=== PATIENT | male | born 1955 | race Caucasian/White ===

== ENCOUNTER 2020-04-14 13:07 | Inpatient (IN) | payer MEDICARE, SELFPAY ==
[2020-04-14] VITALS (12 sets, daily range): BP systolic 116–143; BP diastolic 69–94; PULSE 115–129; RESP 15–26; TEMP 36.4–36.7; O2SAT 95–100; BMI 19.5
--- NOTE | ~2020-04-14 | XR_ITS ---
EXAMINATION: [id number]_CR EXAM DATE: 04/15/2020 12:42 INDICATION: Postthoracentesis. TECHNIQUE: Portable AP frontal upright chest x-ray was obtained. Comparison is made to prior examinat ion from 04/14/2020. FINDINGS: The moderate left pleural effusion is nonloculated, was not well appreciated on yesterday's upright x-ray but confirmed on CT. The left hemidiaphragm has a more normal position, indicating dec rease in size of the subpulmonic pleural effusion. There is no evidence of postprocedure pneumothorax . Completely collapsed fibrotic right upper lobe. There is right-sided Chemo-Port. Narrow cardiac victor hugo houette from underlying hyperinflation, emphysema. Thoracic levoscoliosis. IMPRESSION: 1. Improvement in subpulmonic nonloculated pleural effusion. 2. No evidence of postprocedure pneumothorax. 3. Chronic right upper lobe fibrosis, collapse. Reviewed, dictated and finalized at location A. RIGHT EXPERT
--- NOTE | ~2020-04-14 | XR_ITS ---
EXAMINATION: XR chest 2V EXAM DATE: 04/18/2020 08:10 INDICATION: Pleural effusion . Subpulmonic left pleural effusion. Thoracentesis on 04/15/2020. TECHNIQUE: Frontal and lateral projections of the chest obtained and reviewed. Comparison is made to prior examination from 04/15/2020, 04/14. FINDINGS: Small left pleural effusion, similar appearance to chest x-ray following thoracentesis 2 d ays ago. There is right-sided Chemo-Port. There is complete collapse of the right upper lobe with vol ume loss, retraction of the mediastinum. No evidence of acute airspace disease. No pneumothorax. Approximately 2 cm left infrahilar soft tissue density, lymphadenopathy described on CT. IMPRESSION: 1. Small left subpulmonic pleural effusion unchanged. 2. Right upper lobe collapse, fibrosis. 3. Left infrahilar lymphadenopathy. Reviewed, dictated and finalized at location B. 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
--- NOTE | ~2020-04-14 | US_ITS ---
EXAMINATION: US thoracentesis EXAM DATE: 04/15/2020 12:32 INDICATION: Moderate left pleural effusion on CT. TECHNIQUE: Timeout procedure was performed. I discussed the procedure, its risks and benefits with th e patient. Potential risks discussed included bleeding, infection, and pneumothorax which could poten tially require chest tube. Alternatives were also discussed. The patient understood the risks, was gi jassi chance to ask questions, and agreed to proceed. The skin was prepped and draped in sterile fashion. A total of 5 mL 1% lidocaine was used for local a nesthesia. Under ultrasound guidance, a 5 Fr catheter with trochar was advanced into the left pleural effusion. Fluid was aspirated. The catheter was removed, and a dressing was applied. There were no i mmediate complications. Patient was sent for postprocedure chest x-ray. FINDINGS: Ultrasound images demonstrate a left pleural effusion adequate in size for performing thoracentesis. IMPRESSION: Successful ultrasound-guided thoracentesis yielding 1000 mL of yellow turbid fluid for d iagnostic and therapeutic purposes. Reviewed, dictated and finalized at location A. ING ROOM SUPERVISOR IMPRESSION: Successful ultrasound-guided thoracentesis yielding 1000 mL of yel low turbid fluid for diagnostic and therapeutic purposes.
--- NOTE | ~2020-04-14 | XR_ITS ---
EXAMINATION: XR chest 1V portable EXAM DATE: 04/14/2020 13:26 INDICATION: Cough, fever and shortness of breath. TECHNIQUE: Portable AP frontal chest x-ray was obtained. Comparison is made to prior examination from 01/26/2019, 12/31/2018. FINDINGS: There is a right-sided portacatheter. Completely fibrotic collapsed right upper lobe with r etraction of the trachea and mediastinum. This has progressed compared to prior study. Suspect interval development of ill-defined left basilar edema or pneumonia. Heart is normal in size. No pneumothorax or pleural effusion. IMPRESSION: Probable acute left lower lobe ill-defined edema or pneumonia. Reviewed, dictated and finalized at location A. TIC CUTTER
--- NOTE | ~2020-04-14 | CT_ITS ---
EXAMINATION: CTA chest PE protocol DATE: 04/14/2020 15:45 INDICATION: Shortness of breath, lung cancer TECHNIQUE: Computed tomography angiography (CTA) of the chest was performed with 100 mL Omnipaque-350 intravenous contrast timed to evaluate the pulmonary arteries. Coronal maximum intensity projection 3D-reconstructions were created by the technologist. The dose-length product (DLP) was 229.21 mGy-cm. Automated exposure control and iterative reconstruction technique were employed. COMPARISON: 01/26/2019 FINDINGS: The pulmonary arteries are well-opacified. No pulmonary embolism is identified. There is ch ronic paramediastinal scarring in the right upper lobe. There is moderate emphysema. The previously d escribed multiloculated gas and fluid collection of the right lung apex is no longer present. There i s volume loss in the right hemithorax. A moderate-sized left pleural effusion has developed. There is left hilar lymphadenopathy. The heart size is normal. A right internal jugular Port-A-Cath ends with its tip in the distal superior vena cava. There is moderate thoracic spondylosis. IMPRESSION: 1. No pulmonary embolism. 2. Moderate-sized left pleural effusion. 3. Left hilar lymphadenopathy, reactive versus metastatic disease. Reviewed, dictated and finalized at location A. HIST MONK
--- NOTE | 2020-04-14 13:15 | ECG_ITS ---
Measurements Intervals [place] Rate: 127 P: 55 MD: 151 QRS: 6 QRSD: 74 T: 61 QT: 281 QTc: 409 Interpretive Statements SINUS TACHYCARDIA ATRIAL PREMATURE COMPLEX LOW QRS VOLTAGE- DIFFUSE LEADS ABNORMAL ECG Electronically Signed On 04-14-2020 15:07:09 PARTS LISTER by Carlos Melchor D.O.
--- NOTE | 2020-04-14 13:38 | ED.SOB ---
HPI - SOB/Dyspnea General Chief Complaint: Shortness of Breath/Dyspnea Stated Complaint: SOB, fatigue Time Seen by Provider: 04/14/20 13:12 Source: patient Mode of arrival: wheelchair Limitations: no limitations History of Present Illness HPI Narrative: Patient is a 65-year-old male with a history of COPD, complaining of shortness of breath which she states started 1 month ago but worse this past week. Patient states that I think I have pneumonia . Patient states that he had a fever 2 days ago but none today. Patient denies any chest pain, abdominal pain, nausea, vomiting, diarrhea or urinary symptoms. Related Data Home Medications Medication Instructions Recorded Confirmed lorazepam 0.5 mg PO HS PRN 11/26/18 01/26/19 folic acid 1 mg PO DAILY 12/31/18 01/26/19 Allergies Allergy/AdvReac Type Severity Reaction Status Date / Time No Known Allergies Allergy Verified 04/14/20 13:18 Review of Systems Review of Systems: All systems reviewed & are unremarkable except as noted in HPI and below Constitutional: Constitutional: Denies body ache(s), Denies excessive sweating, Denies fatigue, Denies headache(s), Denies lethargy, Denies malaise, Denies weakness and Denies weight loss Eyes: Eyes: Denies blurry vision, Denies change in vision and Denies loss of vision ENT: Denies dizziness, Denies ear discharge, Denies headache(s), Denies lip swelling, Denies epistaxis, Denies nasal congestion, Denies neck pain, Denies throat swelling and Denies tongue swelling Cardiovascular: Cardiovascular: Denies chest pain, Denies chest pain at rest, Denies chest pain with activity, Denies diaphoresis, Denies rapid heart rate, Denies edema, Denies irregular heart rhythm, Denies lightheadedness, Denies palpitations, Denies dyspnea and Denies dyspnea on exertion Respiratory: Respiratory: Denies hemoptysis Gastrointestinal: Gastrointestinal: Denies abdominal pain, Denies melena, Denies hematochezia, Denies diarrhea, Denies nausea, Denies vomiting and Denies hematemesis Musculoskeletal: Musculoskeletal: Denies abnormal gait, Denies deformity, Denies joint swelling, Denies limited range of motion, Denies neck pain and Denies numbness Neurologic: Denies Abnormal speech present, Denies abnormal gait, Denies confusion, Denies dizziness, Denies headache(s), Denies focal weakness, Denies loss of vision, Denies numbness, Denies Other visual disturbances, Denies Sensory deficit (Neuro) and Denies weakness Psychiatric: Psychiatric: Denies confusion, Denies depression, Denies auditory hallucinations, Denies homicidal ideation and Denies suicidal ideation Endocrine: Endocrine: Denies cold intolerance, Denies excessive sweating, Denies fatigue, Denies heat intolerance and Denies palpitations Hematologic/Lymphatic: Hematologic/Lymphatic: Denies easy bleeding and Denies easy bruising Allergic/Immunologic: Allergic/Immunologic: Denies lip swelling, Denies throat swelling and Denies tongue swelling PMFSH Past Medical History Medical History (Updated 04/14/20 @ 14:43 by Musa Benz MD) Anxiety Bronchitis C. difficile diarrhea Chronic back pain Colitis COPD (chronic obstructive pulmonary disease) Depression Gout History of chemotherapy History of radiation therapy HTN (hypertension) Hyperlipidemia Lung cancer Pneumonia Surgical History Surgical History History of arthroscopy of knee History of removal of Port-a-Cath Family History Family History Father Family history of cardiovascular disease Acute myocardial infarction Mother Family history of cardiovascular disease Acute myocardial infarction Social History Social History Social History: Patient is a DNR. Smoking packs per day: 1 Smoking cigarettes per day: 20.0 Years smoked: 40 Smoking pack-years: 40.00
[2020-04-14] MEDS: ALBUTEROL SULFATE NEB 2.5 MG/0.5 ML INH 5 MG INHALATION ×2 (13:41→19:38)
[2020-04-14] MEDS: IPRATROPIUM BR 0.02% INH SOLN 0.5 MG/2.5 ML VIAL INHALATION ×2 (13:41→19:38)
[2020-04-14 13:51] LABS: Alveolar/Arterial O2 Gradient 24.6 mmHg; Carboxyhemoglobin 1.1 % THb (0-2.0); Fractional Inspired Oxygen 21 %; HCO3 ABG 24.2 mEq/l (22.0-26.0); Methemoglobin ABG 0.3 %THb (0-1.5); Modified Allen's Test Pass; Oxygen Content ABG 19.7 %vol (16.0-22.0); Oxygen Saturation ABG 96.9 % (95.0-100.0); Oxyhemoglobin 94.4 % THb (90.0-100.0); PCO2 ABG 34.4 mmHg (35.0-45.0); PO2 ABG 83.9 mmHg (80.0-100.0); Reduced Hemoglobin 4.2 %THb (0-5.0); Site Drawn RIGHT RADIAL; Total Hemoglobin 14.8 g/dL (12.0-18.0); pH ABG 7.465 (7.350-7.450)
[2020-04-14 13:52] LABS: Device ROOM AIR
[2020-04-14] MEDS: DEXAMETHASONE SOD PHOS INJ 4 MG/ML VIAL 10 MG IV PUSH (13:55)
[2020-04-14 13:57] LABS: Basophils Absolute Auto 0.1 K/mm3 (0.0-0.1); Basophils Percent Auto 0.5 % (0.2-1.2); Eosinophils Absolute Auto 0.3 K/mm3 (0-0.3); Eosinophils Percent Auto 2.3 % (0-4.4); Hematocrit 44.6 % (42.0-52.0); Hemoglobin 15.3 g/dL (14.0-18.0); Immature Granulocyte Absolute 0.03 K/mm3 (0.00-0.031); Immature Granulocyte Percent A 0.3 % (0-0.5); Lymphocytes Absolute Auto 0.58 K/mm3 (0.9-3.2); Lymphocytes Percent Auto 4.9 % (18.3-44.2); Mean Corpuscular HGB Conc 34.3 g/dl (32-36); Mean Corpuscular Hemoglobin 30.5 pg (26-34); Mean Platelet Volume 8.6 fl (7.4-10.4); Monocytes Absolute Auto 1.2 K/mm3 (0.1-0.6); Monocytes Percent Auto 10.5 % (2.6-8.5); Neutrophils Absolute Auto 9.6 K/mm3 (1.3-6.7); Neutrophils Percent Auto 81.5 % (45.5-73.1); Platelet Count Result 348 k/mm3 (150-375); Red Blood Count 5.01 M/mm3 (4.6-6.20); Red Cell Distribution Width 12.8 % (11.5-14.5); White Blood Count 11.8 K/mm3 (4.5-10.0)
[2020-04-14 14:07] LABS: Prothrombin Time 13.5 Seconds (11.1-14.7)
[2020-04-14 14:08] LABS: Partial Thromboplastin Time 29.5 SECONDS (22.3-36.8)
[2020-04-14 14:09] LABS: Lactic Acid Reflex 1.1 mmol/L (0.7-2.1)
[2020-04-14 14:10] LABS: Anion Gap 7 mmol/L (8-16); Calcium 8.9 mg/dL (8.4-10.2); Carbon Dioxide 30 mmol/L (22-30); Chloride 92 mmol/L (98-107); Estimated CRCL calculation 94 ml/min; Estimated Glomerular Filt Rate > 60; Glucose 109 mg/dL (75-110); Potassium 3.8 mmol/L (3.4-5.0); Sodium 129 mmol/L (137-145)
[2020-04-14 14:22] LABS: NT Pro B Type Natriuretic Pept 323 PG/ML (5-100); Troponin I < 0.012 ng/mL (0.000-0.034)
[2020-04-14 14:39] LABS: Blood Urea Nitrogen < 2 mg/dL (9-20)
[2020-04-14 14:49] LABS: D Dimer 3.11 ug/mL (<0.48)
--- NOTE | 2020-04-14 16:05 | ADMGEN ---
This patient, Joe Carrasquillo, was admitted to [facility] Surg Room 321-01. Patient/family oriented to hospital policies and general routines including ID bracelet, bed and alarms, visiting hours, pain management, procedures, bathroom and other care routines, personal items, smoking policy, room service/diet, and visiting hours. Information on how to activate the Rapid Response Team has been discussed. Patient/Family are encouraged to report perceived risks to care and to ask questions if they do not understand what they are told or what they should do.
[2020-04-14] MEDS: MELATONIN 5 MG TABLET PO (20:49)
[2020-04-14] MEDS: SACCHAROMYCES BOULARDII 250 MG CAPSULE PO (20:51)
[2020-04-14] MEDS: NICOTINE (*PBKC) 14 MG PATCH 1 PATCH TRANSDERM (20:51)
[2020-04-14] MEDS: LORazepam (*CRX) 0.5 MG TABLET PO (20:55)
--- NOTE | 2020-04-14 21:30 | PM.IMHP ---
H&P: HPI History of Present Illness Date/Time: 04/14/20 21:30 Chief Complaint: Shortness of breath. Narrative: This is a 64-year-old male smoker with history of both small cell lung cancer in 2018 and non-small cell adenocarcinoma of the lung in 2018, COPD, and hyperlipidemia presented to the emergency department earlier today from home for evaluation of shortness of breath. He has chronic dyspnea even on minimal exertion when walking about the home. That seems to have progressed over the last 1 month however has been markedly worse in the past 5 days or so. For the last 2 days he has had subjective fever and sweats as well as fatigue and generalized malaise: ?I think I have pneumonia.? It sounds as though he has a chronic smoker's cough which is not necessarily unchanged though he has been wheezing more than usual lately. His appetite has also been poor although he denies nausea and vomiting. He denies headache, sinus congestion, otalgia, odynophagia, chest pain, pleuritic pain, orthopnea, PND, lower extremity edema, nausea, vomiting, and diarrhea. Review of Systems Review of Systems: Narrative: Twelve systems were reviewed with pertinent positives and negatives as per HPI. Except as documented, all other systems were reviewed and are negative. [facility] Past Medical History Medical History (Updated 04/14/20 @ 23:42 by Lennie Posadas PA-C) Anxiety C. difficile diarrhea (~12/2018) Chronic back pain Chronic obstructive pulmonary disease Depression Gout Hyperlipidemia Small cell lung cancer (~2007) Arising in the right upper lobe presenting with superior vena cava syndrome. Status post chemotherapy and radiation. Stage IV adenocarcinoma of lung (~04/2017) Status post chemotherapy and immunotherapy of which he stopped taking due to side effects. Tobacco abuse Surgical History Surgical History History of arthroscopy of knee History of removal of Port-a-Cath Family History Family History Father Family history of cardiovascular disease Acute myocardial infarction Mother Family history of cardiovascular disease Acute myocardial infarction Social History Social History (Updated 04/14/20 @ 23:39 by Lennie Posadas PA-C) Social History: Surrogate decision maker: Fernando Carrasquillo. Code status: Do not resuscitate. Smoking packs per day: 1 Smoking cigarettes per day: 20.0 Years smoked: 40 Smoking pack-years: 40.00 Smoking status: Current every day smoker Tobacco type: cigarettes Second hand tobacco smoke exposure: Yes Alcohol intake: current Drinks per week: 4 Substance use: never Substance use type: does not use Additional living arrangements comments: Single and lives in [place]. 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 Gender identity (if verbalized by the patient): Male Sexual Orientation (if Verbalized by the Patient): Straight or Heterosexual Spiritual care concerns: No Agree to blood products: Yes Meds Home Medications and Allergies Home Medications Medication Instructions Recorded Confirmed Type lorazepam 0.5 mg PO HS PRN 11/26/18 04/14/20 History folic acid 1 mg PO DAILY 12/31/18 04/14/20 History Saccharomyces boulardii [Florastor] 250 mg PO TID #90 cap 01/22/19 04/14/20 Rx fluticasone propionate 50 1 spray INTRANASAL DAILY PRN #16 ml 10/02/19 04/14/20 Rx mcg/actuation nasal spray,suspension atorvastatin 10 mg tablet 10 mg PO DAILY #90 tablet 11/16/19 04/14/20 Rx Allergies Allergy/AdvReac Type Severity Reaction Status Date / Time No Known Allergies Allergy Verified 04/14/20 13:18 Vital Signs Vital Signs - 24 hr 04/14/20 13:12 04/14/20 13:19 04/14/20 13:46 Temperature 97.9 F Pulse Rate 129 H 120 H Respiratory Rate 26 H 18 Blood Pressure 1
[2020-04-15] VITALS (15 sets, daily range): BP systolic 120–144; BP diastolic 76–83; PULSE 60–122; RESP 18–24; TEMP 36.3–36.8; O2SAT 93–100
[2020-04-15 06:09] LABS: Hematocrit 37.3 % (42.0-52.0); Hemoglobin 12.8 g/dL (14.0-18.0); Mean Corpuscular HGB Conc 34.3 g/dl (32-36); Mean Corpuscular Hemoglobin 30.4 pg (26-34); Mean Corpuscular Volume 88.6 fl (80-100); Mean Platelet Volume 8.5 fl (7.4-10.4); Platelet Count Result 320 k/mm3 (150-375); Red Blood Count 4.21 M/mm3 (4.6-6.20); Red Cell Distribution Width 12.8 % (11.5-14.5); White Blood Count 9.2 K/mm3 (4.5-10.0)
[2020-04-15 06:39] LABS: Alanine Aminotransferase 10 U/L (4-50); Alkaline Phosphatase 114 U/L (38-126); Anion Gap 4 mmol/L (8-16); Aspartate Amino Transferase 17 U/L (17-59); Bilirubin,Total 0.4 mg/dL (0.2-1.3); Blood Urea Nitrogen 4 mg/dL (9-20); Calcium 8.6 mg/dL (8.4-10.2); Carbon Dioxide 28 mmol/L (22-30); Chloride 97 mmol/L (98-107); Estimated CRCL calculation 111 ml/min; Estimated Glomerular Filt Rate > 60; Glucose 123 mg/dL (75-110); Magnesium 1.5 mg/dL (1.6-2.3); Potassium 4.1 mmol/L (3.4-5.0); Sodium 129 mmol/L (137-145)
[2020-04-15 07:04] LABS: Thyroid Stimulating Hormone Reflex 0.573 uIU/mL (0.465-4.68)
[2020-04-15] MEDS: ALBUTEROL SULFATE NEB 2.5 MG/0.5 ML INH 5 MG INHALATION ×3 (08:18→20:34)
[2020-04-15] MEDS: IPRATROPIUM BR 0.02% INH SOLN 0.5 MG/2.5 ML VIAL INHALATION ×3 (08:18→20:34)
[2020-04-15 09:06] LABS: Lactate Dehydrogenase 638 U/L (313-618)
[2020-04-15 12:40] LABS: pH Pleural Fluid 7.437 (7.210-7.500)
[2020-04-15] MEDS: FOLIC ACID 1 MG TABLET PO (13:41)
[2020-04-15] MEDS: ATORVASTATIN 10 MG TABLET PO (13:41)
[2020-04-15] MEDS: predniSONE 20 MG TABLET 40 MG PO (13:41)
[2020-04-15] MEDS: SACCHAROMYCES BOULARDII 250 MG CAPSULE PO ×2 (13:41→17:19)
[2020-04-15] MEDS: NICOTINE (*PBKC) 14 MG PATCH 1 PATCH TRANSDERM (13:42)
[2020-04-15] MEDS: FLUTICASONE PROPIONATE 0.05% NA SPR 16 GM BTL (*BKC) 1 SPRAY NASAL (13:42)
[2020-04-15 14:25] LABS: Appearance Pleural Fluid Cloudy (Clear); Color Pleural Fluid Yellow (Colorless); Nucleated Cell Pleural Fluid 2306 /uL (0-1000); Pleural fluid source Pleural fluid; RBC Pleural Fluid 1881 /uL (0-0)
[2020-04-15 14:29] LABS: Lymphocytes Pleural Fluid 14 %; Macrophages Pleural Fluid 0 %; Mesothelial Cells Pleural Flui 0 %; Monocytes Pleural Fluid 8 %; Neutrophils Pleural Fluid 78 % (0-25); Other Cells Pleural Fluid 0 %
--- NOTE | 2020-04-15 15:26 | PM.IMPN ---
Progress Note: A&P Assessment and Plan (1) Pneumonia involving left lung: Code(s): J18.9 - Pneumonia, unspecified organism Status: Acute Assessment and Plan: CT showing pleural effusion with possible pneumonia -continue ceftriaxone and azithromycin at this time -white blood cell count has improved -COVID-19 PCR pending but will likely be negative -Gram stain thoracentesis shows white blood cells but no organisms at this time -monitor for diarrhea since he has a history of C diff, continue probiotic (2) Pleural effusion on left: Code(s): J90 - Pleural effusion, not elsewhere classified Status: Acute Assessment and Plan: Most likely differential includes infection verses recurrent lung cancer -thoracentesis done today which shows nucleated cells and blood -await further testing including cytology (3) Person under investigation for COVID-19: Code(s): Z20.822 - Contact with and (suspected) exposure to COVID-19 Status: Acute Assessment and Plan: Await PCR (4) Hyponatremia: Code(s): E87.1 - Hypo-osmolality and hyponatremia Status: Acute Assessment and Plan: Could be due to possible recurrent cancer or infection -will order urine sodium and urine antigens (5) Sinus tachycardia: Code(s): R00.0 - Tachycardia, unspecified Status: Acute Assessment and Plan: Resolving -patient had sinus tachycardia up to 130 earlier in the stay but now 102 -no PE noted on CTA -could be due to COPD or stress (6) Chronic obstructive pulmonary disease: Code(s): J44.9 - Chronic obstructive pulmonary disease, unspecified Status: Acute Assessment and Plan: Pt states he is a smoker and has no plans to quit -continue fluticasone daily (7) Tobacco abuse: Code(s): Z72.0 - Tobacco use Status: Acute Assessment and Plan: Nicotine patch applied Time Spent With Patient Time with patient: 25 - 35 minutes Subjective Date/time seen: 04/15/20 15:26 Interval history: Pt is a 65 y/o male here for SOB and pleural effusion. Patient was seen today and states he is doing well. He cannot really notice any change after the thoracentesis but has not been up been doing much. His only complaint is that he has not had a cup of coffee today. Pt denies nausea, vomiting, fevers, chills, constipation, diarrhea, chest pain, or abdominal pain. We talked about thoracentesis and the differential which includes infection or cancer. He states if it is cancer he would not want to go under any additional treatment. Review of Systems Review of Systems: All systems reviewed & are unremarkable except as noted in HPI and below Exam Narrative: Exam Narrative: General: Well developed well nourished patient in NAD HEENT: normocephalic Neck: supple Neuro: Alert and oriented x4 CV:RRR Resp:Crackles throughout the entire left lung. mild crackles in the RLL. wet cough on exam. Abd: Soft, non distended. No pain to palpation. Positive bowel sounds Extremities: No swelling, erythema, or pain to palpation. Objective Data Vital Signs Vital Signs: Vital Signs - 24 hr 04/14/20 15:30 04/14/20 16:00 04/14/20 19:39 Temperature 97.6 F Pulse Rate 115 H 122 H 116 H Respiratory Rate 24 H 22 H 25 H Blood Pressure 129/94 H 143/86 H Pulse Oximetry 100 96 04/14/20 19:50 04/14/20 20:00 04/14/20 23:46 Temperature 98.1 F 97.9 F Pulse Rate 122 H 121 H 117 H Respiratory Rate 24 H 20 18 Blood Pressure 130/81 118/69 Pulse Oximetry 99 96 04/15/20 00:00 04/15/20 04:00 04/15/20 08:00 Temperature 97.3 F L 97.7 F Pulse Rate 60 98 95 Respiratory Rate 18 20 Blood Pressure 144/81 H 131/83 Pulse Oximetry 98 99 04/15/20 08:19 04/15/20 08:35 04/15/20 11:44 Temperature 98 F Pulse Rate 96 100 96 Respiratory Rate 20 20 18 Blood Pressure 143/76 H Pulse Oximetry 97 99 04/15/20 12:31 04/15/20
--- NOTE | 2020-04-15 15:40 | PC.NURSE ---
Held Lovenox dose 04/15/20 d/t thoracentesis.
[2020-04-15] MEDS: MAGNESIUM OXIDE 400 MG TABLET PO (17:19)
[2020-04-15 18:49] LABS: Sodium Urine Random 50 meq/L
[2020-04-15] MEDS: MELATONIN 5 MG TABLET PO (21:00)
[2020-04-16] VITALS (13 sets, daily range): BP systolic 116–136; BP diastolic 69–83; PULSE 95–130; RESP 16–20; TEMP 35.9–36.9; O2SAT 97–100; BMI 19.5
[2020-04-16] MEDS: ALBUTEROL SULFATE NEB 2.5 MG/0.5 ML INH 5 MG INHALATION ×3 (02:18→14:06)
[2020-04-16] MEDS: IPRATROPIUM BR 0.02% INH SOLN 0.5 MG/2.5 ML VIAL INHALATION ×3 (02:19→14:06)
[2020-04-16 06:28] LABS: Anion Gap 2 mmol/L (8-16); Blood Urea Nitrogen 6 mg/dL (9-20); Calcium 8.3 mg/dL (8.4-10.2); Carbon Dioxide 32 mmol/L (22-30); Chloride 98 mmol/L (98-107); Estimated CRCL calculation 111 ml/min; Estimated Glomerular Filt Rate > 60; Glucose 112 mg/dL (75-110); Magnesium 1.5 mg/dL (1.6-2.3); Potassium 3.8 mmol/L (3.4-5.0); Sodium 132 mmol/L (137-145)
[2020-04-16 06:50] LABS: Hematocrit 36.3 % (42.0-52.0); Hemoglobin 12.3 g/dL (14.0-18.0); Mean Corpuscular HGB Conc 33.9 g/dl (32-36); Mean Corpuscular Hemoglobin 29.7 pg (26-34); Mean Corpuscular Volume 87.7 fl (80-100); Mean Platelet Volume 8.5 fl (7.4-10.4); Platelet Count Result 344 k/mm3 (150-375); Red Blood Count 4.14 M/mm3 (4.6-6.20); Red Cell Distribution Width 12.7 % (11.5-14.5); White Blood Count 10.4 K/mm3 (4.5-10.0)
[2020-04-16] MEDS: MAGNESIUM SULF 2 GM/WATER 50ML 2 GM/50 ML BAG IVPB (08:32)
[2020-04-16] MEDS: SACCHAROMYCES BOULARDII 250 MG CAPSULE PO ×3 (08:36→17:41)
[2020-04-16] MEDS: NICOTINE (*PBKC) 14 MG PATCH 1 PATCH TRANSDERM (08:37)
[2020-04-16] MEDS: FOLIC ACID 1 MG TABLET PO (08:37)
[2020-04-16] MEDS: ENOXAPARIN 40 MG/0.4 ML SYRINGE SUB-Q (08:37)
[2020-04-16] MEDS: predniSONE 20 MG TABLET 40 MG PO (08:37)
[2020-04-16] MEDS: ATORVASTATIN 10 MG TABLET PO (08:38)
[2020-04-16] MEDS: MAGNESIUM OXIDE 400 MG TABLET PO (12:14)
--- NOTE | 2020-04-16 15:58 | PM.IMPN ---
Progress Note: A&P Assessment and Plan (1) Pneumonia involving left lung: Code(s): J18.9 - Pneumonia, unspecified organism Status: Acute Assessment and Plan: CT showing pleural effusion with possible pneumonia -continue ceftriaxone and azithromycin at this time -white blood cell count has improved -COVID-19 PCR pending but will likely be negative -Gram stain thoracentesis shows white blood cells but no organisms at this time -monitor for diarrhea since he has a history of C diff, continue probiotic (2) Pleural effusion on left: Code(s): J90 - Pleural effusion, not elsewhere classified Status: Acute Assessment and Plan: Most likely differential includes infection verses recurrent lung cancer -thoracentesis done 04/15/20 which shows nucleated cells and blood -await further testing including cytology (3) Person under investigation for COVID-19: Code(s): Z20.822 - Contact with and (suspected) exposure to COVID-19 Status: Acute Assessment and Plan: Await PCR (4) Hyponatremia: Code(s): E87.1 - Hypo-osmolality and hyponatremia Status: Acute Assessment and Plan: Could be due to possible recurrent cancer or infection -sodium better today -urine sodium is 50 and he is not on any diuretics -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 -if sodium worsens, consider fluid restriction (5) Sinus tachycardia: Code(s): R00.0 - Tachycardia, unspecified Status: Acute Assessment and Plan: Intermittent -patient had sinus tachycardia up to 130 and currently 112 -no PE noted on CTA -could be due to COPD, lung disease or stress -no chest pain (6) Chronic obstructive pulmonary disease: Code(s): J44.9 - Chronic obstructive pulmonary disease, unspecified Status: Acute Assessment and Plan: Pt states he is a smoker and has no plans to quit -continue fluticasone daily (7) Tobacco abuse: Code(s): Z72.0 - Tobacco use Status: Acute Assessment and Plan: Nicotine patch applied Subjective Date/time seen: 04/16/20 15:58 Interval history: Pt is a 65 y/o male here for SOB and pleural effusion. Patient was seen today and states he is doing well. He says he feels much better today compared to yesterday and is able to breathe better. He is up and walking to the bathroom without shortness of breath. He is off oxygen. He has not had a bowel movement today but states his coffee tomorrow will likely caused him to have 1. He has no diarrhea. Pt denies nausea, vomiting, fevers, chills, chest pain, or abdominal pain. He is eating better today and says he has any in this much in 6 months. Exam Narrative: Exam Narrative: General: Well developed well nourished patient in NAD HEENT: normocephalic Neck: supple Neuro: Alert and oriented x4 CV:RRR Resp:Crackles throughout the entire left lung. mild crackles in the RLL. wet cough on exam. Abd: Soft, non distended. No pain to palpation. Positive bowel sounds Extremities: No swelling, erythema, or pain to palpation. Objective Data Vital Signs Vital Signs: Vital Signs - 24 hr 04/15/20 16:00 04/15/20 20:00 04/15/20 20:40 Temperature 98 F Pulse Rate 106 H 120 H 120 H Respiratory Rate 18 20 Blood Pressure 126/83 Pulse Oximetry 99 93 04/15/20 20:42 04/15/20 21:17 04/16/20 00:00 Temperature 98.3 F 98.4 F Pulse Rate 122 H 120 H 112 H Respiratory Rate 20 18 18 Blood Pressure 139/83 123/80 Pulse Oximetry 99 98 04/16/20 02:26 04/16/20 02:27 04/16/20 04:00 Temperature 98 F Pulse Rate 107 H 116 H 100 Respiratory Rate 20 20 18 Blood Pressure 136/81 Pulse Oximetry 97 04/16/20 08:00 04/16/20 08:10 04/16/20 08:16 Temperature 98.5 F Pulse Rate 95 110 H 110 H Respiratory Rate 16 20 20 Blood Pressure 128/83 Pulse Oximetry 98 04/16/20 12:00 04/16/20 14:07 04/16/20 14:16 Temperature Pulse Rate 130 H 100 100 Res
[2020-04-16 18:03] LABS: SARS-CoV-2 RNA PCR Negative
[2020-04-16] MEDS: MELATONIN 5 MG TABLET PO (20:18)
[2020-04-16] MEDS: LORazepam (*CRX) 0.5 MG TABLET PO (20:18)
[2020-04-17] VITALS (16 sets, daily range): BP systolic 137–144; BP diastolic 77–85; PULSE 84–136; RESP 16–20; TEMP 36.4–36.6; O2SAT 96–100
--- NOTE | 2020-04-17 01:34 | PCRCNOTE ---
Window of time for administration has passed. See next scheduled administration.
[2020-04-17] MEDS: IPRATROPIUM BR 0.02% INH SOLN 0.5 MG/2.5 ML VIAL INHALATION ×5 (03:19→20:17)
[2020-04-17] MEDS: ALBUTEROL SULFATE NEB 2.5 MG/0.5 ML INH 5 MG INHALATION ×4 (03:19→14:26)
[2020-04-17 05:52] LABS: Basophils Percent Auto 0.2 % (0.2-1.2); Eosinophils Percent Auto 0.1 % (0-4.4); Hematocrit 37.9 % (42.0-52.0); Hemoglobin 12.6 g/dL (14.0-18.0); Immature Granulocyte Absolute 0.03 K/mm3 (0.00-0.031); Immature Granulocyte Percent A 0.3 % (0-0.5); Lymphocytes Absolute Auto 0.82 K/mm3 (0.9-3.2); Lymphocytes Percent Auto 9.1 % (18.3-44.2); Mean Corpuscular HGB Conc 33.2 g/dl (32-36); Mean Corpuscular Hemoglobin 29.6 pg (26-34); Mean Platelet Volume 8.3 fl (7.4-10.4); Monocytes Percent Auto 11.4 % (2.6-8.5); Neutrophils Absolute Auto 7.1 K/mm3 (1.3-6.7); Neutrophils Percent Auto 78.9 % (45.5-73.1); Platelet Count Result 327 k/mm3 (150-375); Red Blood Count 4.26 M/mm3 (4.6-6.20); Red Cell Distribution Width 12.7 % (11.5-14.5); White Blood Count 9.1 K/mm3 (4.5-10.0)
[2020-04-17 06:07] LABS: Anion Gap 2 mmol/L (8-16); Blood Urea Nitrogen 8 mg/dL (9-20); Calcium 8.2 mg/dL (8.4-10.2); Carbon Dioxide 33 mmol/L (22-30); Chloride 100 mmol/L (98-107); Estimated CRCL calculation 111 ml/min; Estimated Glomerular Filt Rate > 60; Glucose 100 mg/dL (75-110); Magnesium 1.8 mg/dL (1.6-2.3); Potassium 3.9 mmol/L (3.4-5.0); Sodium 135 mmol/L (137-145)
[2020-04-17] MEDS: ENOXAPARIN 40 MG/0.4 ML SYRINGE SUB-Q (07:45)
[2020-04-17] MEDS: ATORVASTATIN 10 MG TABLET PO (07:45)
[2020-04-17] MEDS: predniSONE 20 MG TABLET 40 MG PO (07:45)
[2020-04-17] MEDS: NICOTINE (*PBKC) 14 MG PATCH 1 PATCH TRANSDERM (07:46)
[2020-04-17] MEDS: FOLIC ACID 1 MG TABLET PO (07:47)
[2020-04-17] MEDS: MAGNESIUM OXIDE 400 MG TABLET PO (07:47)
[2020-04-17] MEDS: SACCHAROMYCES BOULARDII 250 MG CAPSULE PO ×3 (07:47→16:53)
--- NOTE | 2020-04-17 09:40 | P.CDI_ITS ---
CDI Query Clarification Request -COPD exacerbation and Auscultation: wheezes Other: Respiratory distress, Rales bilaterally, rhonchi bilaterally, decreased breath sounds bilaterally documented by EDP. - given his pretty significant wheezing I am going to start him on steroids as well documented in H&P -COPD on problem list with no mention of exacerbation Please clarify if COPD is: * Stable * Exacerbated * Unable to determine
--- NOTE | 2020-04-17 15:28 | PM.IMPN ---
Progress Note: A&P Assessment and Plan (1) Pneumonia involving left lung: Code(s): J18.9 - Pneumonia, unspecified organism Status: Acute Assessment and Plan: CT showing pleural effusion with possible pneumonia -continue ceftriaxone and azithromycin at this time -white blood cell count has improved -COVID-19 PCR negative. -Gram stain thoracentesis shows white blood cells but no organisms at this time -Monitor for diarrhea since he has a history of C diff, continue probiotic (2) Pleural effusion on left: Code(s): J90 - Pleural effusion, not elsewhere classified Status: Acute Assessment and Plan: Most likely differential includes infection verses recurrent lung cancer -thoracentesis done 04/15/20 which shows nucleated cells and blood - Pleural fluid shows malignant cells. Discussed with patient. (3) Lung cancer: Qualifiers: Laterality: right Lung location: unspecified part of lung Qualified Code(s): C34.91 - Malignant neoplasm of unspecified part of right bronchus or lung Code(s): C34.90 - Malignant neoplasm of unspecified part of unspecified bronchus or lung Status: Acute Assessment and Plan: Patient had SCLC in 2008 and was treated with chemo and radiation. Again with stage IV adenocarcinoma in 2018 which he states was also treated with chemo and radiation. Discussed pleural effusions with malignant cells. Patient adamantly declines further workup and does not want any treatment for his lung cancer. (4) Hyponatremia: Code(s): E87.1 - Hypo-osmolality and hyponatremia Status: Acute Assessment and Plan: Improving, 135 today. May be related to cancer or infection. Monitor. (5) Sinus tachycardia: Code(s): R00.0 - Tachycardia, unspecified Status: Acute Assessment and Plan: Intermittent -patient had sinus tachycardia up to 130 and currently 112 -no PE noted on CTA -could be due to COPD, lung disease or stress, nebulizers. Changed albuterol to xopenex. -no chest pain (6) Chronic obstructive pulmonary disease: Code(s): J44.9 - Chronic obstructive pulmonary disease, unspecified Status: Acute Assessment and Plan: COPD exacerbation, feeling improved with oral prednisone but also after thoracentesis. Continue bronchodilator therapy with nebulizers. He feels these are helping. Start symbicort. (7) Tobacco abuse: Code(s): Z72.0 - Tobacco use Status: Acute Assessment and Plan: Ongoing tobacco use with no desire to quit. Nicotine patch applied. Subjective Date/time seen: 04/17/20 15:15 Interval history: Mr. Carrasquillo is a 65yo M admitted with SOB and pleural effusion. He reports he is able to breathe a bit easier today. Tolerating room air. Denies chest pain. No nausea, vomiting or abdominal pain. Feels steroids are helping his appetite. Review of Systems Review of Systems: All systems reviewed & are unremarkable except as noted in HPI and below Exam Narrative: Exam Narrative: General: Male resting sitting up in bed in no acute distress. HEENT: Normocephalic, EOMI, oral mucosa moist. Neck: Supple Neuro: Alert and oriented, no focal deficits, speech is clear. CV:Rate and rhythm regular. Resp:Rales and rhonchi throughout left lung, right with some mild rales. Cough +. Mild conversational dyspnea. Tolerating room air. Abd: Soft, non distended. No pain to palpation. Positive bowel sounds Extremities: No swelling, erythema, or pain to palpation. Objective Data Vital Signs Vital Signs: Vital Signs - 24 hr 04/16/20 16:00 04/16/20 20:00 04/16/20 22:00 Temperature 97.9 F 96.7 F L Pul
[2020-04-17 19:52] LABS: Glucose Pleural Fluid 111 mg/dL; LDH Pleural Fluid 585 U/L; Total Protein Pleural Fluid 3.5 g/dL
[2020-04-17] MEDS: LORazepam (*CRX) 0.5 MG TABLET PO (20:04)
[2020-04-17] MEDS: MELATONIN 5 MG TABLET PO (20:07)
[2020-04-18] VITALS (10 sets, daily range): BP systolic 125–147; BP diastolic 71–83; PULSE 88–116; RESP 20; TEMP 36.9–37.2; O2SAT 94–100
[2020-04-18] MEDS: IPRATROPIUM BR 0.02% INH SOLN 0.5 MG/2.5 ML VIAL INHALATION ×3 (01:58→14:53)
[2020-04-18 05:37] LABS: Legionella pneumophila Ag Ur Not Detected (Not Detected)
[2020-04-18 06:09] LABS: Anion Gap 2 mmol/L (8-16); Blood Urea Nitrogen 6 mg/dL (9-20); Calcium 8.3 mg/dL (8.4-10.2); Carbon Dioxide 32 mmol/L (22-30); Chloride 100 mmol/L (98-107); Estimated CRCL calculation 94 ml/min; Estimated Glomerular Filt Rate > 60; Glucose 84 mg/dL (75-110); Magnesium 1.6 mg/dL (1.6-2.3); Potassium 3.8 mmol/L (3.4-5.0); Sodium 134 mmol/L (137-145)
[2020-04-18] MEDS: ATORVASTATIN 10 MG TABLET PO (08:06)
[2020-04-18] MEDS: predniSONE 20 MG TABLET 40 MG PO (08:06)
[2020-04-18] MEDS: NICOTINE (*PBKC) 14 MG PATCH 1 PATCH TRANSDERM (08:07)
[2020-04-18] MEDS: ENOXAPARIN 40 MG/0.4 ML SYRINGE SUB-Q (08:07)
[2020-04-18] MEDS: MAGNESIUM OXIDE 400 MG TABLET PO (08:07)
[2020-04-18] MEDS: SACCHAROMYCES BOULARDII 250 MG CAPSULE PO ×2 (08:07→12:38)
[2020-04-18] MEDS: FOLIC ACID 1 MG TABLET PO (08:07)
[2020-04-18] MEDS: MAGNESIUM SULF 1 GM/D5W 100 ML 1 GM/100 ML BAG IVPB (09:38)
[2020-04-18 10:09] LABS: Albumin Pleural Fluid 2.1 g/dL
--- NOTE | 2020-04-18 15:54 | PM.DS ---
DS: Admitting Diagnosis Admitting Diagnosis Admitting Diagnosis: PNA DS: Discharge Diagnosis Discharge Diagnosis (1) Pneumonia involving left lung: Code(s): J18.9 - Pneumonia, unspecified organism Status: Acute Assessment and Plan: Date of Admission 04/14/20 Date of Discharge/DOS 04/18/20 Mr. Crarasquillo is a 65yo M with lung cancer, COPD, ongoing tobacco use who presented to the ED for evaluation of increasing SOB, weakness. He describes having shortness of breath for quite some time but has not yet required oxygen therapy at home, but describes increased difficulty breathing this week. Imaging demonstrated pleural effusion with suspected pneumonia. He was treated with IV azithromycin and ceftriaxone. COVID negative. He underwent US guided thoracentesis 04/15/20 which yielded 1 L fluid. Patient has had known adenocarcinoma of the lung since 2018 for which he declines treatment. He is treated for possible COPD exacerbation here also with steroids, started on symbicort as he is not on a daily inhaler. On day of discharge, patient declines his IV antibiotics and is adamant for discharge. Patient does continue to have significant rhonchi and wheezing on exam but has not required supplemental oxygen. At this point it is felt it is safest to discharge him and arrange proper therapy instead of leaving against medical advice. He reports improvement from nebulizer treatments and I have arranged nebulizer set-up for home. I encouraged him to follow up with PCP promptly. Original path report suggested presence malignant cells in pleural fluid. After patient is discharged I have been contacted by the pathologist who determined after further time studying the fluid, it does not in fact appear to have malignant cells and is more likely to be a result of infection/pneumonia. I called the patient after discharge to explain this and he also says he is feeling a little better. (2) Pleural effusion on left: Code(s): J90 - Pleural effusion, not elsewhere classified Status: Acute Assessment and Plan: -thoracentesis done 04/15/20 which shows nucleated cells and blood. Final path report suggests effusion was related to PNA. (3) Lung cancer: Qualifiers: Laterality: right Lung location: unspecified part of lung Qualified Code(s): C34.91 - Malignant neoplasm of unspecified part of right bronchus or lung Code(s): C34.90 - Malignant neoplasm of unspecified part of unspecified bronchus or lung Status: Acute Assessment and Plan: Patient had SCLC in 2007 and was treated with chemo and radiation. Again with stage IV adenocarcinoma in 2018 which he states was also treated with chemo and radiation. Patient adamantly declines further workup and does not want any treatment for his lung cancer. (4) Hyponatremia: Code(s): E87.1 - Hypo-osmolality and hyponatremia Status: Acute Assessment and Plan: Improved. May be related to cancer or infection. (5) Sinus tachycardia: Code(s): R00.0 - Tachycardia, unspecified Status: Acute Assessment and Plan: Intermittent -patient had sinus tachycardia up to 130 with activity. -no PE noted on CTA -could be due to COPD, lung disease or stress, nebulizers. -no chest pain (6) Chronic obstructive pulmonary disease: Code(s): J44.9 - Chronic obstructive pulmonary disease, unspecified Status: Acute Assessment and Plan: COPD exacerbation, feeling improved with oral prednisone but also after thoracentesis. Continue bronchodilator therapy with nebulizers. He feels these are helping. Start symbicort. (7) Tobacco abuse: Code(s): Z72.0 - Tobacco use Statu
[2020-04-18 21:48] LABS: Amylase, Pleural Fluid 20 U/L
[2020-04-19 14:22] LABS: Pneumococcal Antigen Urine Not Detected (Not Detected)
== END 2020-04-18 15:30 | disposition home or self-care (01) | DRG 194 ==
LOC: ANHED 14:43 → ANH3MEDSUR 15:43
PROVIDERS: Physician Assistant; Admitting Provider Family Medicine; Emergency Provider Emergency Medicine; PCP Family Medicine; Visit Provider Physician Assistant
DX: J18.9 Pneumonia, unspecified organism (principal); J44.0 Chronic obstructive pulmonary disease with (acute) lower respiratory infection; J44.1 Chronic obstructive pulmonary disease with (acute) exacerbation; J90 Pleural effusion, not elsewhere classified; E87.1 Hypo-osmolality and hyponatremia; Z20.822 Contact with and (suspected) exposure to COVID-19; R00.0 Tachycardia, unspecified; F41.8 Other specified anxiety disorders; I10 Essential (primary) hypertension; E78.5 Hyperlipidemia, unspecified; Z66 Do not resuscitate; F17.210 Nicotine dependence, cigarettes, uncomplicated; Z85.118 Personal history of other malignant neoplasm of bronchus and lung
CPT/HCPCS: 32555; 36415; 36600; 71045; 71046; 71275; 80048; 80053; 82042; 82150; 82375; 82805; 82945; 83050; 83605; 83615; 83735; 83880; 83986; 84157; 84300; 84443; 84484; 85025; 85027; 85380; 85610; 85730; 87015; 87040; 87070; 87075; 87116; 87205; 87206; 87449; 87899; 88104; 88108; 88184; 88305; 89051; 93005; 94640; 96365; 96368; 96375; 99285; A9270; C9803; G0378; J0456; J0696; J1100; J1650; J3475; J7512; Q9967; U0003; U0005

== ENCOUNTER 2020-05-05 13:11 | Inpatient (IN) | payer MEDICARE, SELFPAY ==
[2020-05-05] VITALS (17 sets, daily range): BP systolic 133–172; BP diastolic 67–92; PULSE 120–148; RESP 19–27; TEMP 35.9–36.7; O2SAT 90–100
--- NOTE | ~2020-05-05 | CT_ITS ---
EXAMINATION: CTA chest PE protocol EXAM DATE: 05/05/2020 15:37 INDICATION: Pulmonary embolism. TECHNIQUE: Spiral CTA of the chest (pulmonary arteries) was performed with 100 cc Omnipaque 350 intr avenous contrast injection. Images were acquired during the pulmonary arterial phase. Coronal maxi mum intensity projection 3D-reconstructions were created by the technologist on dedicated workstation . Axial, coronal and sagittal reformatted images were reviewed. The dose-length product (DLP) for t his examination was 204.44 mGy-cm. The exposure was tailored according to patient size (auto mA exp osure control), and iterative reconstruction (ASIR) was used as additional dose reduction technique. Comparison is made to prior examination from 04/14/2020, 01/26/2019. FINDINGS: Pulmonary arteries are well opacified and without intraluminal filling defects. No thora cic aortic dissection. There is a right-sided Chemo-Port. There is occlusion of the left lower lobe posterior and medial segmental bronchi at the hilum, from l eft hilar lymphadenopathy. One node or nodes measures 2.4 x 1.7 cm. There is also a round enlarged ri ght epicardial lymph node measuring 1.2 cm. Lymph nodes are suspected most likely metastatic, can't t otally exclude that they are reactive. The left lower lobe is still aerated. There is moderate amount of dependent endotracheal debris. Completely collapsed right upper lobe with some calcifications. This appears to be chronically scarre d and probably site of previously treated lung cancer with radiation fibrosis. Lungs are otherwise se verely hyperinflated with narrow cardiac silhouette, could indicate chronic COPD. There is mild emphy sema. There is moderate left-sided nonloculated appearing pleural effusion. There is chronic right pleural thickening. There is no pneumothorax. No evidence of coronary arterial calcification. Upper abdome n is unremarkable. There is thoracic spondylosis without osteoblastic or osteolytic lesions identif ied. Compared to CT from earlier this month, lymphadenopathy probably has minimally increased in size. The re has been improvement in the size of the pleural effusion. IMPRESSION: 1. No pulmonary emboli. 2. Slight interval increase in the left hilar adenopathy, and enlarged round right epicardial lymph node. Suspected most likely metastatic disease. 3. Moderate left pleural effusion with interval improvement. 4. Completely collapsed, scarred right upper lobe, could be radiation fibrosis from treated lung can cer given history. 5. Hyperinflation and emphysema. Reviewed, dictated and finalized at location A. IMPRESSION: 1. No pulmonary emboli. 2. Slight interval increase in the left hilar adenopathy, and enlarged round r ight epicardial lymph node. Suspected most likely metastatic disease. 3. Moderate left pleural effusion with interval improvement. 4. Completely collapsed, scarred right upper lobe, could be radiation fibrosis from treated lung cancer given history. 5. Hyperinflation and emphysema.
--- NOTE | ~2020-05-05 | XR_ITS ---
EXAMINATION: XR chest 1V portable INDICATION: Cough and shortness of breath TECHNIQUE: Portable AP chest at 1424 hours COMPARISON: 04/18/2020 FINDINGS: A right internal jugular Port-A-Cath ends with its tip in the distal superior vena cava. Th ere is persistent volume loss in the right upper lung zone with rightward shift of the trachea and up per mediastinum. The left lung is clear. The heart size is normal. Left hilar lymphadenopathy persist s without significant change. There is no pleural effusion or pneumothorax. IMPRESSION: 1. Chronic volume loss of the right upper lung zone without acute findings. 2. Persistent left hilar lymphadenopathy. Reviewed, dictated and finalized at location A.
--- NOTE | 2020-05-05 13:32 | ECG_ITS ---
Measurements Intervals [place] Rate: 130 P: 64 KS: 157 QRS: 42 QRSD: 76 T: 70 QT: 268 QTc: 395 Interpretive Statements SINUS TACHYCARDIA VENTRICULAR PREMATURE COMPLEX RIGHT ATRIAL ENLARGEMENT LEFT ATRIAL ENLARGEMENT ANTEROSEPTAL INFARCT, AGE INDETERMINATE BASELINE ARTIFACT- II, III, AVR, AVL, AVF ABNORMAL ECG Electronically Signed On 05-05-2020 15:17:49 CDT by Carlos Melchor D.O.
--- NOTE | 2020-05-05 13:32 | PC.NURSE ---
Patient states he is a smoker and does also wear nicotine patches. Advised patient in room to no longer use home inhaler until seen by EDP for further treatment. Patient agreeable at this time.
[2020-05-05] MEDS: methylPREDNISolone SOD SUCC 125 MG VIAL IV PUSH (13:39)
[2020-05-05 13:48] LABS: Basophils Absolute Auto 0.1 K/mm3 (0.0-0.1); Basophils Percent Auto 0.4 % (0.2-1.2); Eosinophils Absolute Auto 0.1 K/mm3 (0-0.3); Eosinophils Percent Auto 0.5 % (0-4.4); Hematocrit 38.9 % (42.0-52.0); Hemoglobin 13.6 g/dL (14.0-18.0); Immature Granulocyte Absolute 0.04 K/mm3 (0.00-0.031); Immature Granulocyte Percent A 0.3 % (0-0.5); Lymphocytes Absolute Auto 0.48 K/mm3 (0.9-3.2); Mean Corpuscular Hemoglobin 30.6 pg (26-34); Mean Corpuscular Volume 87.4 fl (80-100); Mean Platelet Volume 10.1 fl (7.4-10.4); Monocytes Absolute Auto 1.2 K/mm3 (0.1-0.6); Monocytes Percent Auto 10.2 % (2.6-8.5); Neutrophils Absolute Auto 10.2 K/mm3 (1.3-6.7); Neutrophils Percent Auto 84.6 % (45.5-73.1); Platelet Count Result 289 k/mm3 (150-375); Red Blood Count 4.45 M/mm3 (4.6-6.20)
[2020-05-05] MEDS: ALBUTEROL SULFATE NEB 2.5 MG/0.5 ML INH 5 MG INHALATION (13:49)
[2020-05-05] MEDS: IPRATROPIUM BR 0.02% INH SOLN 0.5 MG/2.5 ML VIAL INHALATION ×2 (13:50→19:24)
--- NOTE | 2020-05-05 13:53 | ED.SOB ---
HPI - SOB/Dyspnea General Chief Complaint: Shortness of Breath/Dyspnea Stated Complaint: pneumonia Time Seen by Provider: 05/05/20 13:31 Source: patient, family and RN notes reviewed Mode of arrival: ambulatory Limitations: no limitations History of Present Illness HPI Narrative: Patient 65 years old white female presents with increased shortness of breath over the last 2 to 3 weeks. History of lung cancer, declined to be treated, pleural effusion, pneumonia, COPD. Patient was discharged from our hospital on April 18 after refusing to stay in the hospital and left against the medical advice. Patient denies any fever, chills, nausea, vomiting. Patient is DNR. Mr. Carrasquillo is a 65yo M with lung cancer, COPD, ongoing tobacco use who presented to the ED for evaluation of increasing SOB, weakness. He describes having shortness of breath for quite some time but has not yet required oxygen therapy at home, but describes increased difficulty breathing this week. Imaging demonstrated pleural effusion with suspected pneumonia. He was treated with IV azithromycin and ceftriaxone. COVID negative. He underwent US guided thoracentesis 04/15/20 which yielded 1 L fluid. Patient has had known adenocarcinoma of the lung since 2018 for which he declines treatment. He is treated for possible COPD exacerbation here also with steroids, started on symbicort as he is not on a daily inhaler. On day of discharge, patient declines his IV antibiotics and is adamant for discharge. Patient does continue to have significant rhonchi and wheezing on exam but has not required supplemental oxygen. At this point it is felt it is safest to discharge him and arrange proper therapy instead of leaving against medical advice. He reports improvement from nebulizer treatments and I have arranged nebulizer set-up for home. I encouraged him to follow up with PCP promptly. Original path report suggested presence malignant cells in pleural fluid. After patient is discharged I have been contacted by the pathologist who determined after further time studying the fluid, it does not in fact appear to have malignant cells and is more likely to be a result of infection/pneumonia. I called the patient after discharge to explain this and he also says he is feeling a little better. Related Data Home Medications Medication Instructions Recorded Confirmed lorazepam 0.5 mg PO HS PRN 11/26/18 04/14/20 folic acid 1 mg PO DAILY 12/31/18 04/14/20 Allergies Allergy/AdvReac Type Severity Reaction Status Date / Time No Known Allergies Allergy Verified 04/14/20 13:18 Review of Systems Review of Systems: Narrative: CONSTITUTIONAL: Denies fever, chills, or sweats. EYES: Denies visual changes, redness, or discharge. ENT: Denies rhinorrhea, congestion, sore throat, or otalgia. CARDIOVASCULAR: Denies chest pain, palpitations, or edema. RESPIRATORY: Increased shortness of breath GASTROINTESTINAL: Denies abdominal pain, nausea, vomiting, or diarrhea. GENITOURINARY: Denies dysuria or hematuria. SKIN: Denies rash or itching. MUSCULOSKELETAL: Denies back pain, joint pain, or myalgia. NEUROLOGIC: Denies headache, numbness, or weakness. PSYCHIATRIC: Denies anxiety or depression. [facility] Past Medical History Medical History Anxiety C. difficile diarrhea (~12/2018) Chronic back pain Chronic obstructive pulmonary disease Depression Gout Hyperlipidemia Small cell lung cancer (~2007) Arising in the right upper lobe presenting with superior vena cava syndrome. Status post chemotherapy and radiation. Stage IV adenocarcinoma of lung (~04/2017) Status post chemotherapy and immunotherapy of which he stopped taking due to side effects. Tobacco abuse Surgical History Surgical History History of arthroscopy of knee History of removal of Port-a-Cath Family History Family History (Reviewed 05/05/20 @ 13:5
[2020-05-05 13:56] LABS: Alveolar/Arterial O2 Gradient 61.9 mmHg; Base Excess ABG 1.5 mEq/l (+/-2.0); Fractional Inspired Oxygen 21 %; Oxygen Content ABG 14.6 %vol (16.0-22.0); Oxyhemoglobin 78.2 % THb (90.0-100.0); PCO2 ABG 35.9 mmHg (35.0-45.0); PO2 FiO2 Ratio Arterial Blood 2.13 %; Total Hemoglobin 13.3 g/dL (12.0-18.0); pH ABG 7.461 (7.350-7.450)
[2020-05-05 13:56] LABS: INR 0.9; Prothrombin Time 12.7 Seconds (11.1-14.7)
[2020-05-05 13:57] LABS: Partial Thromboplastin Time 22.6 SECONDS (22.3-36.8)
[2020-05-05 13:58] LABS: PO2 ABG 44.8 mmHg (80.0-100.0)
[2020-05-05 13:59] LABS: Device ROOM AIR; Modified Allen's Test Pass; Oxygen Saturation ABG 83.6 % (95.0-100.0); Site Drawn LEFT RADIAL
[2020-05-05 14:44] LABS: Lactic Acid Reflex 1.1 mmol/L (0.7-2.1)
[2020-05-05 14:45] LABS: Alanine Aminotransferase 19 U/L (4-50); Alkaline Phosphatase 122 U/L (38-126); Anion Gap 9 mmol/L (8-16); Aspartate Amino Transferase 25 U/L (17-59); Bilirubin,Total 0.9 mg/dL (0.2-1.3); Blood Urea Nitrogen 4 mg/dL (9-20); Calcium 9.8 mg/dL (8.4-10.2); Carbon Dioxide 27 mmol/L (22-30); Chloride 89 mmol/L (98-107); Estimated CRCL calculation 95 ml/min; Estimated Glomerular Filt Rate > 60; Glucose 101 mg/dL (75-110); Magnesium 1.3 mg/dL (1.6-2.3); Sodium 125 mmol/L (137-145)
[2020-05-05 14:57] LABS: NT Pro B Type Natriuretic Pept 325 PG/ML (5-100); Troponin I < 0.012 ng/mL (0.000-0.034)
[2020-05-05 15:20] LABS: Alveolar/Arterial O2 Gradient 46.7 mmHg; Device ROOM AIR; Fractional Inspired Oxygen 21 %; HCO3 ABG 23.6 mEq/l (22.0-26.0); Modified Allen's Test Pass; Oxygen Content ABG 17.4 %vol (16.0-22.0); Oxygen Saturation ABG 94.4 % (95.0-100.0); Oxyhemoglobin 91.4 % THb (90.0-100.0); PCO2 ABG 31.8 mmHg (35.0-45.0); Site Drawn LEFT RADIAL; Total Hemoglobin 13.5 g/dL (12.0-18.0); pH ABG 7.489 (7.350-7.450)
[2020-05-05] MEDS: SODIUM CHLORIDE 0.9% IV 1,000 ML 60 ML IV CONT (15:49)
--- NOTE | 2020-05-05 16:56 | PC.NURSE ---
Attempted to administer pt's ivp morphine and zofran as ordered. pt declined both at present time. educated pt that meds available when requested.
--- NOTE | 2020-05-05 17:16 | PC.NURSE ---
RN on 2nd floor notified ED RN that assigned bed 251 not clean. pt to go to 249.
--- NOTE | 2020-05-05 17:25 | PM.IMHP ---
H&P: HPI History of Present Illness Date/Time: 05/05/20 17:25 this is a 65-year-old male patient who has a history of tobacco abuse. He also has a history of COPD with that was diagnosed in 2007. He was treated with chemotherapy and radiation. Again with stage IV adeno carcinoma 02/28/2017 which she stated was also treated with chemo and radiation. Patient was intolerant of the treatment and takes any treatment. The patient has become a DNR and has declined any further treatment for lung cancer. The patient was just discharged from this hospital on 04/18/2020. They discussed with the patient that the pleural effusion had many malignant cells. Again the patient denied any need for any further treatment. The patient was found to have hyponatremia at that time. Which improved during his stay here his sodium came up to 135. He had a CT a performed at that time there was no PE. He also had a COVID test that was negative at that time. The patient had a thoracentesis at that time. He was to start on Symbicort. Patient was counseled on his tobacco abuse and nicotine patch was applied at that time. The patient was going to sign out against medical advice his last admission but was talked into staying in being discharged.. The original path report suggested presence of malignant cells in the pleural fluid. However after the discharged after further review that the patient did not appear to have malignant cells but rather infection/pneumonia. These reports were made by the pathologist. Today initially the patient was placed on oxygen but then was weaned off. The patient was given nebulizer treatments and Solu-Medrol. However the patient recently has been on steroids. H&H is 13.6 and 38.9. PH 7.489 on his ABGs with the a CO2 of 31.8 and O2 saturation 94.4. The patient's sodium was 125 today 129 to 130 he is. Initially the patient was started normal saline IV fluids and they have been stopped. The patient stated that he is feeling better. However he wants to be referred to health care specialist for possibility of hospice evaluation. Chest CT from today was read as no pulmonary emboli. Slight interval increase in left hilar adenopathy, and large around right epicardial lymph node. Suspected most likely metastatic disease. Moderate left pleural effusion with interval improvement. Completely collapsed, scattered right upper lobe, could be radiation fibrosis from treated lung cancer given history. Hyperinflation in emphysema. The patient is being admitted for observation on the date of service 05/05/2020. Chief Complaint: Shortness of breath Review of Systems Review of Systems: All systems reviewed & are unremarkable except as noted in HPI and below Constitutional: Constitutional: Reports as per HPI and Reports no additional constitutional complaints Eyes: Eyes: Reports as per HPI and Reports no additional eye complaints ENT: Reports system reviewed and no additional complaints, except as documented and Reports Normal hearing present Cardiovascular: Cardiovascular: Reports no additional cardiovascular complaints Respiratory: Respiratory: Reports no additional respiratory complaints and Reports no additional respiratory complaints Gastrointestinal: Gastrointestinal: Reports as per HPI and Reports no additional gastrointestinal complaints Musculoskeletal: Musculoskeletal: Reports no additional musculoskeletal complaints Integumentary/Breasts: Skin/Breast: Reports system reviewed and no additional complaints, except as docu and Reports as per HPI Neurologic: Reports system reviewed and no additional complaints, except as documented, Reports as per HPI and Reports Normal hearing present Psychiatric: Psychiatric: Reports no additional psychiatric complaints and Reports as per HPI Endocrine: Endocrine: Reports no additional endocrine complaints Hematologic/Lymphatic: Hematologic/Lymphatic: Reports no additional hematologic/lymphatic complaints Allergic
--- NOTE | 2020-05-05 17:36 | ADMGEN ---
This patient, Joe Carrasquillo, was admitted to Medical Room 249-01. Patient/family oriented to hospital policies and general routines including ID bracelet, bed and alarms, visiting hours, pain management, procedures, bathroom and other care routines, personal items, smoking policy, room service/diet, and visiting hours. Information on how to activate the Rapid Response Team has been discussed. Patient/Family are encouraged to report perceived risks to care and to ask questions if they do not understand what they are told or what they should do.
--- NOTE | 2020-05-05 18:30 | PC.NURSE ---
HR noted to be in the 130s-150s on telemetry. Patient asymptomatic with elevated heartrate. Notified Alma Thrasher NP of same and she states she will change Albuterol treatments to Xopenex.
[2020-05-05] MEDS: MAGNESIUM SULF 2 GM/WATER 50ML 2 GM/50 ML BAG IVPB (18:34)
[2020-05-05] MEDS: methylPREDNISolone SOD SUCC 125 MG VIAL 60 MG IV PUSH ×2 (18:35→23:06)
[2020-05-05] MEDS: ALBUTEROL SULFATE NEB 2.5 MG/0.5 ML INH INHALATION (19:24)
[2020-05-05 20:09] LABS: Sodium Urine Random 11 meq/L
[2020-05-05] MEDS: LORazepam (*CRX) 0.5 MG TABLET PO (22:30)
[2020-05-05] MEDS: MELATONIN 5 MG TABLET 10 MG PO (22:30)
[2020-05-05] MEDS: MORPHINE SULFATE (*CRX) 4 MG/ML INJ 2 MG IV PUSH (23:07)
[2020-05-06] VITALS (17 sets, daily range): BP systolic 122–139; BP diastolic 73–83; PULSE 103–123; RESP 16–24; TEMP 36–36.5; O2SAT 93–100
[2020-05-06] MEDS: IPRATROPIUM BR 0.02% INH SOLN 0.5 MG/2.5 ML VIAL INHALATION ×4 (02:21→20:06)
[2020-05-06] MEDS: ALBUTEROL SULFATE NEB 2.5 MG/0.5 ML INH INHALATION ×2 (02:21→13:07)
[2020-05-06] MEDS: methylPREDNISolone SOD SUCC 125 MG VIAL 60 MG IV PUSH ×4 (05:23→23:38)
[2020-05-06 05:36] LABS: Basophils Percent Auto 0.2 % (0.2-1.2); Hemoglobin 12.5 g/dL (14.0-18.0); Immature Granulocyte Absolute 0.08 K/mm3 (0.00-0.031); Immature Granulocyte Percent A 0.6 % (0-0.5); Lymphocytes Absolute Auto 0.16 K/mm3 (0.9-3.2); Lymphocytes Percent Auto 1.3 % (18.3-44.2); Mean Corpuscular HGB Conc 34.7 g/dl (32-36); Mean Corpuscular Hemoglobin 30.2 pg (26-34); Mean Platelet Volume 8.8 fl (7.4-10.4); Monocytes Absolute Auto 0.4 K/mm3 (0.1-0.6); Monocytes Percent Auto 2.8 % (2.6-8.5); Neutrophils Absolute Auto 11.8 K/mm3 (1.3-6.7); Neutrophils Percent Auto 95.1 % (45.5-73.1); Platelet Count Result 329 k/mm3 (150-375); Red Blood Count 4.14 M/mm3 (4.6-6.20); White Blood Count 12.4 K/mm3 (4.5-10.0)
[2020-05-06 05:45] LABS: Anion Gap 5 mmol/L (8-16); Blood Urea Nitrogen 7 mg/dL (9-20); Calcium 9.2 mg/dL (8.4-10.2); Carbon Dioxide 28 mmol/L (22-30); Chloride 95 mmol/L (98-107); Estimated CRCL calculation 111 ml/min; Estimated Glomerular Filt Rate > 60; Glucose 222 mg/dL (75-110); Magnesium 1.5 mg/dL (1.6-2.3); Potassium 4.3 mmol/L (3.4-5.0); Sodium 128 mmol/L (137-145)
[2020-05-06 05:47] LABS: Lactic Acid Reflex 1.3 mmol/L (0.7-2.1)
[2020-05-06 07:06] LABS: Thyroid Stimulating Hormone Reflex 0.555 uIU/mL (0.465-4.68)
--- NOTE | 2020-05-06 09:36 | PM.IMPN ---
Progress Note: A&P Assessment and Plan (1) Lung cancer: Qualifiers: Laterality: unspecified laterality Lung location: unspecified part of lung Qualified Code(s): C34.90 - Malignant neoplasm of unspecified part of unspecified bronchus or lung Code(s): C34.90 - Malignant neoplasm of unspecified part of unspecified bronchus or lung Status: Acute Assessment and Plan: The patient is a DNR. prize coordinator consult has been placed for possible hospice. The patient had declined any further chemo or radiation treatment. (2) Hyponatremia: Code(s): E87.1 - Hypo-osmolality and hyponatremia Status: Acute Assessment and Plan: May be related to his lung cancer. We did stop the IV fluids. Will check osmolarity. Urine sodium check thyroid level. (3) Acute exacerbation of chronic obstructive pulmonary disease (COPD): Code(s): J44.1 - Chronic obstructive pulmonary disease with (acute) exacerbation Status: Acute Assessment and Plan: Nebulizer treatments and Solu-Medrol. Patient has been instructed on smoking cessation. Continue with Symbicort. Will add Levaquin for possible bronchitis. (4) Hypomagnesemia: Code(s): E83.42 - Hypomagnesemia Status: Acute Assessment and Plan: Replace as necessary. (5) Tobacco abuse: Code(s): Z72.0 - Tobacco use Status: Acute Assessment and Plan: I spoke with the patient for approximately 5 minutes concerning smoking cessation. Instructed patient that he should not be smoking cigarettes when he has a nicotine patch on. He would like to continue with a nicotine patch to not smoke. (6) HTN (hypertension): Qualifiers: Hypertension type: essential hypertension Qualified Code(s): I10 - Essential (primary) hypertension Code(s): I10 - Essential (primary) hypertension Status: Acute Assessment and Plan: Continue with home medication (7) Non-small cell cancer of left lung: Code(s): C34.92 - Malignant neoplasm of unspecified part of left bronchus or lung Status: Acute Assessment and Plan: Patient is a DNR and like to talk to hospice Additional Plan Patient has decided that he would like to continue to get a steroid antibiotic and nebulizer treatment at present time. He also wants to have some discussion with his family before they will consider hospice. At patient request pulmonary consult has been placed. Will continue current treatment and plan. Subjective Date/time seen: 05/06/20 09:36 Patient was seen during the morning rounds today. Patient has mild shortness of breath. No chest pain. Mild cough. No fever no chills. No abdominal pain,nausea, vomiting. Mood stable. Review of Systems Review of Systems: All systems reviewed & are unremarkable except as noted in HPI and below Constitutional: Constitutional: Reports as per HPI and Reports no additional constitutional complaints Eyes: Eyes: Reports as per HPI and Reports no additional eye complaints ENT: Reports system reviewed and no additional complaints, except as documented and Reports Normal hearing present Cardiovascular: Cardiovascular: Reports no additional cardiovascular complaints Respiratory: Respiratory: Reports no additional respiratory complaints and Reports no additional respiratory complaints Gastrointestinal: Gastrointestinal: Reports as per HPI and Reports no additional gastrointestinal complaints Musculoskeletal: Musculoskeletal: Reports no additional musculoskeletal complaints Integumentary/Breasts: Skin/Breast: Reports system reviewed and no additional complaints, except as docu and Reports as per HPI Neurologic: Reports system reviewed and no additional complaints, except as documented, Reports as per HPI and Reports Normal hearing present Psychiatric: Psychiatric: Reports no additional psychiatric complaints and Reports as per HPI Endocrine: Endocrine: Reports no additional
--- NOTE | 2020-05-06 10:00 | PC.NURSE ---
Found medication bottle in the bed with patient. Patient attempted to hide medication bottle and stated don't worry about it. Discussed the importance of allowing staff to compensate pill bottle and place in safe until discharge. Patient eventually allowed me to take it. Verified with charge nurse, Zina, medication was 2 pills of Ativan and 1 pill of Advil PM. Placed in safe.
[2020-05-06] MEDS: FOLIC ACID 1 MG TABLET PO (10:09)
[2020-05-06] MEDS: levoFLOXacin 500 MG/D5W 100 ML 500 MG/100 ML BAG 100 MG IVPB (10:09)
[2020-05-06] MEDS: ATORVASTATIN 10 MG TABLET PO (10:09)
[2020-05-06] MEDS: ENOXAPARIN 40 MG/0.4 ML SYRINGE SUB-Q (10:09)
[2020-05-06] MEDS: NICOTINE (*PBKC) 14 MG PATCH 1 PATCH TRANSDERM (10:10)
[2020-05-06] MEDS: MAGNESIUM OXIDE 400 MG TABLET PO (10:10)
--- NOTE | 2020-05-06 10:41 | PM.CNPUL ---
Assessment and Plan Assessment and plan (1) Acute exacerbation of chronic obstructive pulmonary disease (COPD): Code(s): J44.1 - Chronic obstructive pulmonary disease with (acute) exacerbation Status: Acute Assessment and Plan: No evidence of acute pneumonia. Continue Levaquin 500 mg daily for acute bronchitis Start Pulmicort 1 mg nebulized q.12 hours DC Symbicort Continue ipratropium 0.5 mg q.6 hours scheduled Discontinue level be uteri all Continue albuterol 2.5 mg Q 6 hours p.r.n. Continue methylprednisolone 60 mg q.6 hours scheduled for a total of 5-7 days if the patient's breathing becomes more labored he should be transferred to IMU and started on BiPAP therapy at 18/4. The patient is a DNR and does not want to be intubated or resuscitated. History of Present Illness History of Present Illness Consult date: 05/06/20 Chief complaint: Progression of lung cancer/dyspnea/hyponatremia/si Narrative: This is a 65-year-old male with a history of COPD and non-small cell lung cancer who is admitted for COPD exacerbation. Over the past 2-3 weeks he has been more short of breath and having more chest tightness and wheezing. He does have a cough but has minimal sputum production. He denies any fever, chills, or night sweats. He denies any loss of taste or smell. He has no recent sick contacts. A CT of the chest was done and shows right upper lobe chronic scar tissue as well as an increasing left hilar nodule or mass. He also has a mild left pleural effusion. He underwent a thoracentesis last admission approximately 2-3 weeks ago which showed no malignant cells. He has been started on systemic corticosteroids, antibiotics and nebulized bronchodilator therapy. Review of Systems Review of Systems: All systems reviewed & are unremarkable except as noted in HPI and below PMFSH Past Medical History Medical History (Updated 05/05/20 @ 17:37 by Alma Thrasher NP) Anxiety C. difficile diarrhea (~12/2018) Chronic back pain Chronic obstructive pulmonary disease Depression Gout He stated he has no longer being treated for this. Hyperlipidemia Port-A-Cath in place Right chest Small cell lung cancer (~2007) Arising in the right upper lobe presenting with superior vena cava syndrome. Status post chemotherapy and radiation. Stage IV adenocarcinoma of lung (~04/2017) Status post chemotherapy and immunotherapy of which he stopped taking due to side effects. Tobacco abuse Surgical History Surgical History History of arthroscopy of knee History of removal of Port-a-Cath Family History Family History Father Family history of cardiovascular disease Acute myocardial infarction Mother Family history of cardiovascular disease Acute myocardial infarction Social History Social History (Updated 05/05/20 @ 17:44 by Alma Thrasher NP) Social History: Surrogate decision maker: Geovany and Elena Carrasquillo. Code status: Do not resuscitate. The patient tells me that he does use a nicotine patch but then he occasionally has a cigarette with the patch on. I explained that he should not be smoking with the patch on. He is not and does not have any children. He states that he is thinking of having his sister S is power family law attorney. Smoking packs per day: 1 Smoking cigarettes per day: 20.0 Years smoked: 40 Smoking pack-years: 40.00 Smoking status: Current every day smoker Tobacco type: cigarettes Second hand tobacco smoke exposure: Yes Alcohol intake: current Drinks per week: 35 Substance use: never Substance use type: does not use Other substance usage details: drinks beer Living arrangements: alone Additional living arrangements comments: Single and lives in [place]. 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
[2020-05-06] MEDS: PANTOPRAZOLE 40 MG TABLET PO (11:17)
[2020-05-06] MEDS: BUDESONIDE RESPULE NEB 0.5 MG/2 ML AMP 1 MG INHALATION (20:06)
[2020-05-06] MEDS: MORPHINE SULFATE (*CRX) 4 MG/ML INJ 2 MG IV PUSH (20:08)
[2020-05-06] MEDS: MELATONIN 5 MG TABLET 10 MG PO (20:08)
[2020-05-06] MEDS: LORazepam (*CRX) 0.5 MG TABLET PO (20:08)
[2020-05-07] VITALS (17 sets, daily range): BP systolic 133–142; BP diastolic 69–81; PULSE 100–127; RESP 16–20; TEMP 35.9–36.4; O2SAT 96–98; BMI 20.9
[2020-05-07] MEDS: IPRATROPIUM BR 0.02% INH SOLN 0.5 MG/2.5 ML VIAL INHALATION ×4 (01:20→19:49)
[2020-05-07 05:30] LABS: Hematocrit 34.1 % (42.0-52.0); Hemoglobin 11.8 g/dL (14.0-18.0); Mean Corpuscular HGB Conc 34.6 g/dl (32-36); Mean Corpuscular Hemoglobin 30.1 pg (26-34); Mean Platelet Volume 9.7 fl (7.4-10.4); Platelet Count Result 281 k/mm3 (150-375); Red Blood Count 3.92 M/mm3 (4.6-6.20); Red Cell Distribution Width 13.2 % (11.5-14.5); White Blood Count 27.8 K/mm3 (4.5-10.0)
[2020-05-07] MEDS: methylPREDNISolone SOD SUCC 125 MG VIAL 60 MG IV PUSH (05:35)
[2020-05-07 05:48] LABS: Alanine Aminotransferase 17 U/L (4-50); Albumin Level 3.6 g/dL (3.5-5.1); Alkaline Phosphatase 94 U/L (38-126); Anion Gap 6 mmol/L (8-16); Aspartate Amino Transferase 20 U/L (17-59); Bilirubin,Total 0.1 mg/dL (0.2-1.3); Blood Urea Nitrogen 8 mg/dL (9-20); Calcium 9.2 mg/dL (8.4-10.2); Carbon Dioxide 27 mmol/L (22-30); Chloride 95 mmol/L (98-107); Estimated CRCL calculation 111 ml/min; Estimated Glomerular Filt Rate > 60; Glucose 150 mg/dL (75-110); Magnesium 1.5 mg/dL (1.6-2.3); Potassium 4.7 mmol/L (3.4-5.0); Sodium 128 mmol/L (137-145)
[2020-05-07] MEDS: ALBUTEROL SULFATE NEB 2.5 MG/0.5 ML INH INHALATION ×2 (07:54→19:50)
[2020-05-07] MEDS: BUDESONIDE RESPULE NEB 0.5 MG/2 ML AMP 1 MG INHALATION (07:55)
[2020-05-07] MEDS: FOLIC ACID 1 MG TABLET PO (09:17)
[2020-05-07] MEDS: PANTOPRAZOLE 40 MG TABLET PO (09:17)
[2020-05-07] MEDS: ATORVASTATIN 10 MG TABLET PO (09:18)
[2020-05-07] MEDS: NICOTINE (*PBKC) 14 MG PATCH 1 PATCH TRANSDERM (09:18)
[2020-05-07] MEDS: levoFLOXacin 500 MG/D5W 100 ML 500 MG/100 ML BAG 100 MG IVPB (09:19)
[2020-05-07] MEDS: ENOXAPARIN 40 MG/0.4 ML SYRINGE SUB-Q (09:19)
[2020-05-07] MEDS: MAGNESIUM OXIDE 400 MG TABLET PO (09:19)
--- NOTE | 2020-05-07 09:46 | PM.PNPUL ---
Progress Note: A&P Assessment and Plan (1) Lung cancer: Qualifiers: Laterality: unspecified laterality Lung location: unspecified part of lung Qualified Code(s): C34.90 - Malignant neoplasm of unspecified part of unspecified bronchus or lung Code(s): C34.90 - Malignant neoplasm of unspecified part of unspecified bronchus or lung Status: Acute Assessment and Plan: Small cell lung cancer on right 2007 s/p chemo and RXT and then non-small cell lung cancer 2016 and did not tolerate chemotherapy a that time. Patient now with enlarging left hilar adenopathy and enlarged round right epicardial lymph node. Moderate left effusion that is improved since 04/14/20. Left pleural fluid negative for malignancy on 04/16/20. He does not wish for any additional treatment for lung cancer at this time. (2) Acute exacerbation of chronic obstructive pulmonary disease (COPD): Code(s): J44.1 - Chronic obstructive pulmonary disease with (acute) exacerbation Status: Acute Assessment and Plan: 05/06 Patient is improved and near normal. I will change solumedrol to prednisone 50 mg PO Q day. Continue symbicort 160/4.5 2 puffs BID and ipratropirim neb 0.5 Q6. I will DC budesinide neb as on systemic and inhaled steroids. Levaquin IV for now. Possible DC home on 05/07. Subjective Date/time seen: 05/07/20 09:46 Interval history: 05/06 Chief complaint: Progression of lung cancer/dyspnea/hyponatremia/si Narrative: This is a 65-year-old male with a history of COPD and small cell lung cancer on right 2007 s/p chemo and RXT and then non-small cell lung cancer 2016 and did not tolerate chemotherapy a tthat time who is admitted for COPD exacerbation. Over the past 2-3 weeks he has been more short of breath and having more chest tightness and wheezing. He does have a cough but has minimal sputum production. He denies any fever, chills, or night sweats. He denies any loss of taste or smell. He has no recent sick contacts. A CT of the chest was done and shows right upper lobe chronic scar tissue as well as an increasing left hilar nodule or mass. He also has a mild left pleural effusion. He underwent a thoracentesis last admission approximately 2-3 weeks ago which showed no malignant cells. He has been started on systemic corticosteroids, antibiotics and nebulized bronchodilator therapy. 05/07 Patient states he is 100% better bu t not back to baseline. Wheezing eresolved and SOB improved. RA sats 98%. Review of Systems Review of Systems: All systems reviewed & are unremarkable except as noted in HPI and below Eyes: Eyes: Reports no additional eye complaints ENT: Reports system reviewed and no additional complaints, except as documented and Reports sinus pressure Cardiovascular: Cardiovascular: Reports no additional cardiovascular complaints Respiratory: Respiratory: Reports cough, Denies hemoptysis, Reports dyspnea and Denies wheezing Gastrointestinal: Gastrointestinal: Reports no additional gastrointestinal complaints Musculoskeletal: Musculoskeletal: Reports no additional musculoskeletal complaints Integumentary/Breasts: Skin/Breast: Reports system reviewed and no additional complaints, except as docu Neurologic: Reports system reviewed and no additional complaints, except as documented and Reports behavioral changes Psychiatric: Psychiatric: Reports no additional psychiatric complaints and Reports behavioral changes Endocrine: Endocrine: Reports no additional endocrine complaints Exam Const: General: cooperative and healthy appearing Orientation/consciousness: oriented to person, oriented to place and oriented to time HENMT: Head: normal to inspection Ears: hearing grossly normal bilaterally Mouth: Yes Normal oral and palatal mucosa present Throat: tonsils absent Eyes: General: appearance normal, both eyes and all related structures Neck: Neck: normal visual inspection Chest: Chest palpation & inspection: n
[2020-05-07] MEDS: predniSONE 40 MG, predniSONE 10 MG 50 MG PO (10:49)
--- NOTE | 2020-05-07 12:23 | PCNSR ---
On 05/07/20, the student,Claritza Newton, provided care and completed [facility] documentation on this patient. I have reviewed the student's documentation and agree with the findings.
--- NOTE | 2020-05-07 16:26 | PM.IMPN ---
Progress Note: A&P Assessment and Plan (1) Acute exacerbation of chronic obstructive pulmonary disease (COPD): Code(s): J44.1 - Chronic obstructive pulmonary disease with (acute) exacerbation Status: Acute Assessment and Plan: Improved Breathing treatment with ipratropium every 6 hours Started Symbicort Solu-Medrol has been discontinued Started on p.o. 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 Constitutional: Comments: No chills no fevers Cardiovascular: Comments: No chest pain Respiratory: Comments: Shortness of breath Gastrointestinal: Comments: No nausea no vomiting no dominant Musculoskeletal: Comments: No muscle Integumentary/Breasts: Comments: Not rashes Neurologic: Comments: No sensory motor deficit Exam Const: General: comfortable, no acute distress, well developed, alert and awake Nutritional Appearance: average body habitus Orientation/consciousness: patient oriented x3 HENMT: Head: normal to inspection, normocephalic and atraumatic Ears: hearing grossly normal bilaterally Face and sinus: normal facial exam Eyes: General: appearance normal, both eyes and all related structures Pupils: Equal, round and reactive pupils present EOM: EOMs intact bilaterally Neck: Neck: full ROM, no lymphadenopathy and no JVD Thyroid: thyroid normal Lymphatic: no lymphadenopathy noted Resp: Effort & Inspection: normal respiratory effort and able to speak in complete sentences Auscultation: diminished lung sounds Cardio: Jugular venous distension: no JVD Rate: regular rate Rhythm: regular rhythm Heart sounds: S1 normal heart sound present and S2 normal heart sound present GI: GI Palp: Yes Soft to palpation and Yes No hepatosplenomegaly present : General: Yes deferred Skin: Rashes: no rashes Wounds: no wounds Neuro: General: patient oriented x3 and CN's II-XI intact bilaterally Cranial nerves: Yes CN's II-XII intact bilaterally and Yes Equal, round and reactive pupils present Cognition (Neuro): normal cognition Speech: normal speech Gait exam (Neuro): Normal gait present Motor exam (neuro): 5/5 motor strength present throughout Extrem: General: normal to inspection, full ROM, no joint enlargement and no pedal edema Objective Data Vital Signs Vital Signs: Vital Signs - 24 hr 05/06/20 20:00 05/06/20 20:18 05/06/20 20:23 Temperature Pulse Rate 117 H 119 H 112 H Respiratory Rate 20 20 Blood Pressure Pulse Oximetry 93 05/06/20 22:00 05/07/20 00:00 05/07/20 01:20 Temperature 96.8 F L Pulse Rate 114 H 104 H 109 H Respiratory Rate 16 20 Blood Pressure 122/83 Pulse Oximetry 100 05/07/20 01:30 05/07/20 04:00 05/07/20 06:00 Temperature 96.8 F L Pulse Rate 103 H 101 H 100 Respiratory Rate 20 16 Blood Pressure 133/81 Pulse Oximetry 98 05/07/20 07:57 05/07/20 08:00 05/07/20 08:08 Temperature Pulse Rate 106 H 105 H 107 H Respiratory Rate 18 20 Blood Pressure Pulse Oximetry 96 05/07/20 09:21 05/07/20 12:00 05/07/20 14:09 Temperature 96.7 F L Pulse Rate 123 H
[2020-05-07] MEDS: LORazepam (*CRX) 0.5 MG TABLET PO (20:05)
[2020-05-07] MEDS: MELATONIN 5 MG TABLET 10 MG PO (20:05)
[2020-05-08] VITALS (10 sets, daily range): BP systolic 147; BP diastolic 87; PULSE 91–104; RESP 14–20; TEMP 36.5; O2SAT 93–99
[2020-05-08] MEDS: IPRATROPIUM BR 0.02% INH SOLN 0.5 MG/2.5 ML VIAL INHALATION ×2 (02:28→09:24)
[2020-05-08] MEDS: MAG HYDROX/AL HYDROX/SIMETH 30 ML UDC PO (05:55)
[2020-05-08] MEDS: ACETAMINOPHEN 325 MG TABLET 650 MG PO ×2 (05:55→09:56)
[2020-05-08] MEDS: FOLIC ACID 1 MG TABLET PO (09:42)
[2020-05-08] MEDS: NICOTINE (*PBKC) 14 MG PATCH 1 PATCH TRANSDERM (09:42)
[2020-05-08] MEDS: predniSONE 40 MG, predniSONE 10 MG 50 MG PO (09:43)
[2020-05-08] MEDS: ATORVASTATIN 10 MG TABLET PO (09:43)
[2020-05-08] MEDS: levoFLOXacin 500 MG/D5W 100 ML 500 MG/100 ML BAG 100 MG IVPB (09:44)
[2020-05-08] MEDS: MAGNESIUM OXIDE 400 MG TABLET PO (09:45)
[2020-05-08] MEDS: PANTOPRAZOLE 40 MG TABLET PO (09:45)
--- NOTE | 2020-05-08 10:00 | PM.PNPUL ---
Progress Note: A&P Assessment and Plan (1) Lung cancer: Qualifiers: Laterality: unspecified laterality Lung location: unspecified part of lung Qualified Code(s): C34.90 - Malignant neoplasm of unspecified part of unspecified bronchus or lung Code(s): C34.90 - Malignant neoplasm of unspecified part of unspecified bronchus or lung Status: Acute Assessment and Plan: Small cell lung cancer on right 2007 s/p chemo and RXT and then non-small cell lung cancer 2016 and did not tolerate chemotherapy a that time. Patient now with enlarging left hilar adenopathy and enlarged round right epicardial lymph node. Moderate left effusion that is improved since 04/14/20. Left pleural fluid negative for malignancy on 04/16/20. He does not wish for any additional treatment for lung cancer at this time. (2) Acute exacerbation of chronic obstructive pulmonary disease (COPD): Code(s): J44.1 - Chronic obstructive pulmonary disease with (acute) exacerbation Status: Acute Assessment and Plan: 05/07 Patient is improved and near normal. I will change solumedrol to prednisone 50 mg PO Q day. Continue symbicort 160/4.5 2 puffs BID and ipratropirim neb 0.5 Q6. I will DC budesinide neb as on systemic and inhaled steroids. Levaquin IV for now. Possible DC home on 05/08. 05/08 Ready for DC home today from pulmonary perspective on these pulmonary medications (needs prescriptions for all): -Prednisone 40 mg PO X 3 days then Prednisone 30 X 3 days, then 20 mg X 3 days then 10 mg X 3 days then off. -Levaquin 750 MG PO X 7 days -Symbicort 160/4.5 2 puffs BID -Muscarinic antagonist that his insurance covers (atrovent 2 puffs Q 6 HR, incruse ellipta 62.5 at 1 puff Q day, spireva 18 mics at 1 puff Q day or spireva respimat 2.5 mics at 2 puff Q day) -Albuterol neb 2.5 mg Q4 hours PRN SOB Follow up in pulmonary clinic in 3 weeks. I gave him our business card and he will call and I notified our industrial editor. Subjective Date/time seen: 05/08/20 10:00 Interval history: 05/06 Chief complaint: Progression of lung cancer/dyspnea/hyponatremia/si Narrative: This is a 65-year-old male with a history of COPD and small cell lung cancer on right 2007 s/p chemo and RXT and then non-small cell lung cancer 2016 and did not tolerate chemotherapy a tthat time who is admitted for COPD exacerbation. Over the past 2-3 weeks he has been more short of breath and having more chest tightness and wheezing. He does have a cough but has minimal sputum production. He denies any fever, chills, or night sweats. He denies any loss of taste or smell. He has no recent sick contacts. A CT of the chest was done and shows right upper lobe chronic scar tissue as well as an increasing left hilar nodule or mass. He also has a mild left pleural effusion. He underwent a thoracentesis last admission approximately 2-3 weeks ago which showed no malignant cells. He has been started on systemic corticosteroids, antibiotics and nebulized bronchodilator therapy. 05/07 Patient states he is 100% better bu t not back to baseline. Wheezing resolved and SOB improved. RA sats 98%. Changed to prednisone 50. 05/08 Patient states he is back to baseline regarding his breathing. RA sats 98%. No wheezes. Review of Systems Review of Systems: All systems reviewed & are unremarkable except as noted in HPI and below Eyes: Eyes: Reports no additional eye complaints ENT: Reports system reviewed and no additional complaints, except as documented and Reports sinus pressure Cardiovascular: Cardiovascular: Reports no additional cardiovascular complaints and Reports dyspnea Respiratory: Respiratory: Reports cough, Denies hemoptysis, Reports dyspnea and Denies wheezing Gastrointestinal: Gastrointestinal: Reports no additional gastrointestinal complaints Musculoskeletal: Musculoskeletal: Reports no additional musculoskeletal complaints Integumentary/Breasts: Skin/Breast: Reports system revie
--- NOTE | 2020-05-08 11:32 | PM.DS ---
DS: Admitting Diagnosis Admitting Diagnosis Admitting Diagnosis: (1) Lung cancer: (2) Hyponatremia: (3) Acute exacerbation of chronic obstructive pulmonary disease (COPD): (4) Hypomagnesemia: (5) Tobacco abuse: (6) HTN (hypertension): (7) Non-small cell cancer of left lung: DS: Discharge Diagnosis Discharge Diagnosis (1) Chronic obstructive pulmonary disease: Code(s): J44.9 - Chronic obstructive pulmonary disease, unspecified Status: Acute Assessment and Plan: responded to nebulizer treatment and steroids (2) Acute exacerbation of chronic obstructive pulmonary disease (COPD): Code(s): J44.1 - Chronic obstructive pulmonary disease with (acute) exacerbation Status: Acute Assessment and Plan: resolved (3) Postobstructive pneumonia: Code(s): J18.9 - Pneumonia, unspecified organism Status: Acute Assessment and Plan: will complete 7 day course of Levaquin (4) Acute hyponatremia: Code(s): E87.1 - Hypo-osmolality and hyponatremia Status: Acute Assessment and Plan: 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 (5) Lung cancer: Qualifiers: Laterality: right Lung location: unspecified part of lung Qualified Code(s): C34.91 - Malignant neoplasm of unspecified part of right bronchus or lung Code(s): C34.90 - Malignant neoplasm of unspecified part of unspecified bronchus or lung Status: Acute Assessment and Plan: patient has declined for further treatment (6) HTN (hypertension): Qualifiers: Hypertension type: essential hypertension Qualified Code(s): I10 - Essential (primary) hypertension Code(s): I10 - Essential (primary) hypertension Status: Acute Assessment and Plan: stable (7) Non-small cell cancer of left lung: Code(s): C34.92 - Malignant neoplasm of unspecified part of left bronchus or lung Status: Acute Assessment and Plan: patient has declined further treatment due to poor tolerance (8) Tobacco abuse: Code(s): Z72.0 - Tobacco use Status: Acute Assessment and Plan: nicotine patch patient is still a current active everyday smoker (9) Pleural effusion on left: Code(s): J90 - Pleural effusion, not elsewhere classified Status: Acute Assessment and Plan: status post thoracentesis while on prior admission (10) Pneumonia involving left lung: Code(s): J18.9 - Pneumonia, unspecified organism Status: Acute Assessment and Plan: to complete Levaquin (11) Lung cancer: Qualifiers: Laterality: unspecified laterality Lung location: unspecified part of lung Qualified Code(s): C34.90 - Malignant neoplasm of unspecified part of unspecified bronchus or lung Code(s): C34.90 - Malignant neoplasm of unspecified part of unspecified bronchus or lung Status: Acute Assessment and Plan: advanced (12) Acute hyponatremia: Code(s): E87.1 - Hypo-osmolality and hyponatremia Status: Acute Assessment and Plan: secondary to SIADH (13) Port-A-Cath in place: Code(s): Z95.828 - Presence of other vascular implants and grafts Status: Chronic Assessment and Plan: local care DS: Summary Hospital Course Reason for hospitalization: SOB Hospital Course: This is a 65-year-old male with past medical history significant tobacco dependent, a small cell lung cancer, status post chemotherapy and radiation, COPD, malignant recurrent pleural effusion, patient presented to the emergency room due to worsening shortness of breath he had been recently discharged from the hospital he had been treated for similar issues. this time around the patient was found to be hyponatremia also reaccumulated pleural effusion as well which is known to be malignant from prior thoracentesis and a pleural effusion collins
== END 2020-05-08 13:25 | disposition home or self-care (01) | DRG 191 ==
LOC: ANHED 16:15 → ANH2MED 16:46
PROVIDERS: Internal Medicine; Nurse Practitioner; Admitting Provider Family Medicine; Emergency Provider Emergency Medicine; PCP Family Medicine; Visit Provider Internal Medicine
DX: J44.1 Chronic obstructive pulmonary disease with (acute) exacerbation (principal); C34.91 Malignant neoplasm of unspecified part of right bronchus or lung; C34.92 Malignant neoplasm of unspecified part of left bronchus or lung; E22.2 Syndrome of inappropriate secretion of antidiuretic hormone; J91.0 Malignant pleural effusion; J44.0 Chronic obstructive pulmonary disease with (acute) lower respiratory infection; E83.42 Hypomagnesemia; F17.210 Nicotine dependence, cigarettes, uncomplicated; I10 Essential (primary) hypertension; E78.5 Hyperlipidemia, unspecified; Z66 Do not resuscitate; Z79.899 Other long term (current) drug therapy; Z92.21 Personal history of antineoplastic chemotherapy; Z92.3 Personal history of irradiation; Z95.828 Presence of other vascular implants and grafts
CPT/HCPCS: 36415; 36600; 71045; 71275; 80048; 80053; 82805; 83605; 83735; 83880; 83930; 84300; 84443; 84484; 85025; 85027; 85610; 85730; 87040; 87804; 93005; 94640; 96365; 96372; 96374; 96375; 96376; 99285; A9270; G0378; J1650; J1956; J2270; J2930; J3475; J7030; J7512; Q9967